=== PATIENT | male | born 1960 | race Two or more races ===

== ENCOUNTER 2019-09-22 00:37 | Emergency (ER) | payer SELFPAY ==
[~2019-09-22] VITALS: Ht 185.4 cm; Wt 89.8 kg
--- NOTE | 2019-09-22 00:52 | NUR ---
PT BIB RA FOR SOB ON THE STREETS. PT STATES THAT HE WAS HAVING DIFFICULTY BREATHING WHEN RA PICKED HIM UP FOR SOB. AAOX4. NOT IN ANY DISTRESS. WHEEZES AUSCULTATED BILATERALLY ON BOTH LOBES. CONNECTED TO MONITOR. GIVEN 2L N/C
[2019-09-22] MEDS ORDERED: ALBUTEROL FS 2.5 MG/3 ML VIAL.NEB NEB ONE (01:00)
[2019-09-22] MEDS ORDERED: ALBUTEROL FS 2.5 MG/3 ML VIAL.NEB ONE (01:28)
--- NOTE | 2019-09-22 03:05 | NUR ---
Patient discharged to home in stable condition. Written and verbal after care instructions given. Patient verbalizes understanding of instruction.
[2019-09-22 03:06] VITALS: BP 125/67
--- NOTE | 2019-09-22 03:06 | NUR ---
GIVEN PRESCRIPTION AND EXPLAINED.
== END 2019-09-22 03:07 | disposition home or self-care (01) ==
LOC: ER 00:37
DX: J21.9 Acute bronchiolitis, unspecified (principal); F43.10 Post-traumatic stress disorder, unspecified; Z98.890 Other specified postprocedural states; Z91.013 Allergy to seafood
CPT/HCPCS: 71045-TC